=== PATIENT | female | born 2000 | race Caucasian/White ===

== ENCOUNTER 2023-11-19 11:39 | Emergency (ER) | payer BC, SELFPAY ==
[2023-11-19 11:42] VITALS: BP 106/84; PULSE 80; TEMP 36.5; O2SAT 100; BMI 32.8
--- NOTE | 2023-11-19 11:52 | ED.DENTAL1 ---
HPI - Dental/Oral General Chief complaint: Dental/Oral Stated complaint: DENTAL PAIN Time Seen by Provider: 11/19/23 11:41 Source: patient Mode of arrival: walk-in History of Present Illness HPI Narrative: 23-year-old female presents for tooth ache. She is complaining of pain to her left lower wisdom tooth. She is on Augmentin and has seen a dentist about this issue. She does not feel like the Augmentin is helping and she has been taking ibuprofen and Tylenol and it is not helping either. No fever or difficulty breathing or swallowing. The pain is continuous and aching. Related Data Previous Rx's ?Medication ?Instructions ?Recorded acetaminophen 300 mg-codeine 30 mg 1 tab PO Q6H PRN pain 5 days #20 11/19/23 tablet tabs clindamycin HCl 300 mg capsule 300 mg PO Q6H 10 days #40 caps 11/19/23 Allergies Allergy/AdvReac Type Severity Reaction Status Date / Time No Known Drug Allergies Allergy Verified 11/19/23 11:45 Review of Systems ROS Narrative A ten point review of systems is negative except as noted above. Exam Narrative Exam Narrative: Nurses note and vital signs reviewed and patient is not hypoxic. General: The patient appears well and in no apparent distress. Patient is resting comfortably on cart. Skin: Warm, dry, no pallor noted. There is no rash noted. Head: Normocephalic, atraumatic Eye: Normal conjunctiva, no drainage Ears, Nose, Mouth, and Throat: oral mucosa is moist. Nares patent. No facial swelling or erythema. No swelling to the floor of her mouth. Left mandibular dentition is examined and there is some minimal erythema at the gingiva but no swelling or bleeding or pus. Cardiovascular: Regular Rate and Rhythm Respiratory: Patient is in no distress, no accessory muscle use, lungs are clear to auscultation, no wheezing, rales or rhonchi Back: non-tender GI: Soft and nontender Musculoskeletal: No joint swelling Neurological: A&O, normal speech Psychiatric: Cooperative Constitutional Vital Signs, click to edit/add: Last Vital Signs Temp 97.7 F 11/19/23 11:42 Pulse 80 11/19/23 11:42 Resp 18 11/19/23 11:42 BP 106/84 11/19/23 11:42 Pulse Ox 100 11/19/23 11:42 O2 Del Method Room Air 11/19/23 11:42 Course Vital Signs Vital signs: Vital Signs Temperature 97.7 F 11/19/23 11:42 Pulse Rate 80 11/19/23 11:42 Respiratory Rate 18 11/19/23 11:42 Blood Pressure 106/84 11/19/23 11:42 Pulse Oximetry 100 11/19/23 11:42 Oxygen Delivery Method Room Air 11/19/23 11:42 Temperature 97.7 F 11/19/23 11:42 Pulse Rate 80 11/19/23 11:42 Respiratory Rate 18 11/19/23 11:42 Blood Pressure 106/84 11/19/23 11:42 Pulse Oximetry 100 11/19/23 11:42 Oxygen Delivery Method Room Air 11/19/23 11:42 MDM - Dental/Oral MDM Narrative Medical decision making narrative: She is provided a prescription for Tylenol 3. She was given the option of staying on the Augmentin or switching to another antibiotic and she chose to switch to another antibiotics on prescribing clindamycin as well. She will follow-up with her dentist. Treatment diagnosis and follow-up were discussed with the patient. Differential Diagnosis Differential diagnosis: Likely gingival abscess, dental caries, toothache and dental abscess Discharge Plan Discharge Chief Complaint: Dental/Oral Clinical Impression: Toothache Patient Disposition: Home, Self-Care Time of Disposition Decision: 11:49 Condition: Good Mode of Transportation: Private Vehicle Prescriptions / Home Meds: New clindamycin HCl 300 mg capsule 300 mg PO Q6H 10 Days Qty: 40 0RF acetaminophen-codeine 300-30 mg tablet 1 tab PO Q6H PRN (Reason: pain) 5 Days Qty: 20 0RF Print Language: American Instructions: Toothache (ED) Additional Instructions: Follow-up with your dentist
== END 2023-11-19 11:56 | disposition home or self-care (01) ==
PROVIDERS: Emergency Provider Emergency Medicine
DX: K08.89 Other specified disorders of teeth and supporting structures (principal)
CPT/HCPCS: 99283